=== PATIENT | female | born 1990 | race American Indian/Alaskan Native ===

== ENCOUNTER 2017-05-16 08:14 | Emergency (ER) | payer MEDICAID ==
[2017-05-16 08:23] VITALS: BP 124/69
--- NOTE | 2017-05-16 09:11 | XRay Report ---
RIGHT ANKLE: Trauma, pain. The bones are well mineralized with normal bony contours and joint alignment. No fractures or destructive changes are noted and the adjacent soft tissues are normal. IMPRESSION: Normal study. RIGHT FOOT: Trauma, pain. The bony architecture is intact. Bony alignment is normal. No soft tissue abnormalities are seen. The joint spaces appear preserved. IMPRESSION: Normal right foot.
[2017-05-16] MEDS ORDERED: MOTRIN PO ONE (09:30)
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
== END 2017-05-16 10:04 | disposition home or self-care (01) ==
LOC: ED 08:14
DX: S93.601A Unspecified sprain of right foot, initial encounter (principal); S90.31XA Contusion of right foot, initial encounter; V09.9XXA Pedestrian injured in unspecified transport accident, initial encounter; Y93.89 Activity, other specified; Y99.8 Other external cause status; Y92.009 Unspecified place in unspecified non-institutional (private) residence as the place of occurrence of the external cause